=== PATIENT | female | born 1965 | race Caucasian/White ===

== ENCOUNTER → 2016-06-20 | Outpatient (CLI) | payer BC ==
--- NOTE | 2016-06-21 09:04 | XR ---
EXAMINATION TYPE: XR hand complete LT 3 views DATE OF EXAM: 06/21/2016 6:30 AM COMPARISON: NONE HISTORY: Pain second digit FINDINGS: The osseous structures are intact. The joint spaces are preserved and there is no acute fracture or dislocation. There is a small spur at the base of the second metacarpal. Arthropathy first carpometa carpal joint. IMPRESSION: 1. Arthropathy first carpal metacarpal joint. A spur seen at the base of the second metacarpal. Corre late for osteoarthritis. 2. No acute fracture.
== END | disposition home or self-care (01) ==
LOC: RADXRYALE 16:16
PROVIDERS: ATTEND Physician Assistant Medical
DX: M12.842 Other specific arthropathies, not elsewhere classified, left hand (principal); M77.8 Other enthesopathies, not elsewhere classified

== ENCOUNTER → 2016-07-06 | Outpatient (CLI) | payer BC ==
--- NOTE | 2016-07-06 08:02 | US ---
EXAMINATION TYPE: US abdomen complete DATE OF EXAM: 07/06/2016 7:26 AM COMPARISON: 2012 CT in pacs CLINICAL HISTORY: R10.11 RUQ Pain. Intermittent RUQ pain and N/V x 4 weeks EXAM MEASUREMENTS: Liver Length: 15.6 cm Gallbladder Wall: 0.2 cm CBD: 0.8 cm Spleen: 11.7 cm Right Kidney: 10.3 x 4.3 x 4.4 cm Left Kidney: 10.4 x 4.7 x 4.2 cm TECHNOLOGIST IMPRESSION: Pancreas: visualized portions wnl, limited by overlying bowel gas Liver: wnl Gallbladder: wnl The gallbladder wall measures 2 mm. Evidence for sonographic Lundberg's sign: no CBD: dilated at 0.8cm Spleen: visualized portions wnl, limited by rib shadowing, splenule seen on 2012 CT not seen on toda y's exam Right Kidney: wnl Left Kidney: 1.1cm hypoechoic area superior pole Upper IVC: wnl Abd Aorta: wnl The lesion in the left kidney does not meet the requirements of simple cyst. IMPRESSION: LESION IN THE UPPER POLE LEFT KIDNEY DOES NOT MEET THE REQUIREMENTS OF A SIMPLE CYST. FURTHER IMAGING WITH CT OR MR WOULD BE SUGGESTED.
== END | disposition home or self-care (01) ==
LOC: RADUSWWP 06:49
PROVIDERS: ATTEND Family Medicine
DX: N28.9 Disorder of kidney and ureter, unspecified (principal)
CPT/HCPCS: 76700

== ENCOUNTER → 2016-07-26 | Outpatient (CLI) | payer BC ==
--- NOTE | 2016-07-26 13:02 | CT ---
EXAMINATION TYPE: CT abdomen pelvis w con DATE OF EXAM: 07/26/2016 11:35 AM COMPARISON: 12/20/2011 INDICATION: RUQ pain; Intractable Vomiting DLP: 664.50 mGycm, Automated exposure control for dose reduction was used. CONTRAST: 100 ml mL of Omnipaque 300. Study performed with Oral Contrast TECHNIQUE: Axial images were obtained from above the diaphragm to the pubic rami in the axial plane a t 5 mm thick sections. Reconstructed images are reviewed on the computer in the coronal plane. FINDINGS: Limited CT sections are obtained the lung bases. The lung bases are clear. CT ABDOMEN: Liver: Normal Spleen: Normal Pancreas: Normal Adrenal glands: The adrenal glands are normal. Gallbladder: Normal Kidneys: No masses are evident. No hydronephrosis is present. There is a 1.3 cm cyst on the superio r anterior left kidney measuring 25 Hounsfield units. Delayed images were obtained through the kidne ys, which remain unremarkable. Aorta: Vascular calcification is within the aorta. Inferior vena cava: Normal. CT PELVIS: Loops of bowel within the abdomen and pelvis are normal. There are loops of bowel which are incom pletely distended or lack oral contrast limiting their evaluation. Appendix: Not visualized. Some right lower quadrant lymph nodes are present. Correlate for mesenteric adenitis. Urinary bladder: Normal. Genitourinary structures: Uterus is not identified. Small left ovary may remain present. Right adnexa l region is unremarkable. Osseous structures: No suspicious lytic or sclerotic lesions. IMPRESSIONS: 1. Left ovarian residual. 2. No acute abdomen or pelvis abnormality. 3. No changes suspicious for bowel obstruction. 4. Mesenteric adenitis could be considered within the differential.
== END ==
LOC: RADCTMAIN 09:19
PROVIDERS: ATTEND Family Medicine
DX: R10.11 Right upper quadrant pain (principal); R11.2 Nausea with vomiting, unspecified
CPT/HCPCS: 74177; Q9967

== ENCOUNTER → 2018-03-16 | Outpatient (CLI) | payer BC ==
--- NOTE | 2018-03-19 12:11 | MM ---
Reason for exam: screening (asymptomatic). Last mammogram was performed 2 years and 1 month ago. History: Patient is postmenopausal. Family history of breast cancer in mother at age 60. Benign left mammotome panel of the left breast, September 19, 2008. Physical Findings: A clinical breast exam by your physician is recommended on an annual basis and results should be correlated with mammographic findings. MG Screening Mammo w CAD Bilateral CC and MLO view(s) were taken. Prior study comparison: February 22, 2016, bilateral MG screening mammo w CAD. January 04, 2012, CAD bilateral diagnostic mammogram. The breast tissue is heterogeneously dense. This may lower the sensitivity of mammography. Benign calcifications in the right breast. Previous mammotome biopsy in the left breast. No significant changes when compared with prior studies. ASSESSMENT: Benign, BI-RAD 2 RECOMMENDATION: Routine screening mammogram of both breasts in 1 year.
== END | disposition home or self-care (01) ==
LOC: RADMAMWWP 12:38
PROVIDERS: ATTEND Obstetrics & Gynecology Obstetrics
DX: Z12.31 Encounter for screening mammogram for malignant neoplasm of breast (principal)
CPT/HCPCS: 77067

== ENCOUNTER 2018-05-09 10:49 | Day surgery (SDC) | payer BC ==
[2018-05-03 15:17] VITALS: BMI 28.1
[~2018-05-09 10:49] MED LIST: DEXAMETHASONE SOD PHOSPHATE 10 MG/ML 1 ML VIAL IV ONE; HYDROmorphone 0.5 MG/0.5 ML SYRINGE IVP PRN; LACTATED RINGERS 1,000 ML IV SCH; MIDAZOLAM 2 MG/2 ML VIAL IV PRN; ONDANSETRON 4 MG/2 ML VIAL IVP ONE; Pre Op ABX Message 1 EACH MISC MISCELLANE ONE; SCOPOLAMINE 1.5MG/72HR PATCH TRANSDERM ONE
[2018-05-09 11:14] VITALS: RESP 16; TEMP 97.7
[2018-05-09 11:26] LABS: Glucose,Whole Blood 82 mg/dL (75-99)
[2018-05-09] MEDS ORDERED: ceFAZolin IN SWFI 2 GM/20 ML SYRINGE IVP ONE (12:15)
[2018-05-09] MEDS ORDERED: PROPOFOL 10 MG/ML 20 ML VIAL IV ONE (12:48)
[2018-05-09] MEDS ORDERED: ceFAZolin 1,000 MG VIAL ONE (12:48)
[2018-05-09] MEDS ORDERED: MIDAZOLAM 2 MG/2 ML VIAL ONE (12:48)
[2018-05-09] MEDS ORDERED: fentaNYL (PF) 50 MCG/ML 2 ML AMP ONE (12:48)
[2018-05-09] MEDS ORDERED: LIDOCAINE 1% INJ 10MG/ML (20 ML MDV) SQ ONE (13:10)
--- NOTE | 2018-05-09 14:09 | P.OP ---
Date of Procedure: 05/09/18 Preoperative Diagnosis: 1. Plantar fasciitis left foot 2. 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 Endoscopic plantar fasciotomy left foot 2. Partial phalangectomy hallux and second digit right foot Anesthesia: MAC (Supplemented with 20 mL of 1% Xylocaine plain) Indications for Procedure: 1. Plantar fasciitis left foot line 2. Hypertrophied bone causing soft corns hallux and second digit right foot Description of Procedure: On the date of surgery the patient was taken to the operating room in good condition placed on the operating table in a supine position where an IV was started and adequate IV anesthetic agents were utilized. Anesthesia was then further supplemented with approximately 17 mL of 1% Xylocaine plain given in an infiltrative block to the patient's left heel and the hallux and second digit of her right foot The patient's feet and ankles were then prepped and draped in the usual aseptic manner and over heavy web roll padding an ankle tourniquet was placed above the malleoli of each ankle. Lysing an Esmarch bandage the patient's right foot and ankle were then elevated and exsanguinated of blood and after approximately 1 minutes. A time the ankle tourniquet was inflated to approximately 250 mmHg. At this point in time attention was directed to the dorsal lateral side of the interphalangeal joint of the patient's right hallux where an approximately 1 cm linear incision was made the incision was then deepened via sharp dissection down through the level of the subcutaneous tissue layers all neurovascular structures encountered were identified isolated and were retracted and any bleeding vessels were clamped electrocauterized dissection was then carried deep down to level PERIOSTEAL STRUCTURES OVERLYING THE DORSAL LATERAL SIDE OF THE INTERPHALANGEAL JOINT THESE WERE INCISED IN LINE WITH THE ORIGINAL SKIN INCISION AND UNDERSCORED AND RETRACTED FROM THE UNDERLYING BONE. ARTERY BUR WAS ENTERED REDUCE AND THE LATERAL SIDE OF THE INTERPHALANGEAL JOINT WAS CRATERIZED. ThroughOUT THE SURGICAL PROCEDURE COPIOUS AMOUNTS STERILE SALINE SOLUTION WAS USED TO IRRIGATE THE SURGICAL SITE. Skin edges were then coaptated and maintained utilizing or 0 nylon simple interrupted suture At this point in time attention was directed to the dorsal medial side of the middle phalanx of the second toe of the right foot where the exact same procedures described above for the lateral side of the hallux was performed on the medial side of the middle phalanx of the second toe right foot. Patient of the surgeries Adaptic Kerlix fluffs four-inch conformer and Coban was used to form a compression dressing and the ankle tourniquet to the patient's right ankle was deflated adequate hemostatic return was seen in all digits of the patient's right foot. At this point in time attention was directed the patient's left foot where utilizing an Esmarch bandage the patient's varus elevated and exsanguinated of blood and after approximately 1 minutes. A time the ankle tourniquet to the patient's left ankle was inflated to approximately 250 mmHg's point in time attention was directed the plantar medial side of the patient's left heel where an approximately 1 cm linear incision was made in line with the medial band of the plantar fascia this was deepened down through the level of the subcutaneous tissue layers all neurovascular structures encountered were identified isolated and were retracted and any bleeding vessels were clamped electrocauterized utilizing a fascial elevator the medial band of the plantar fascia was identified and the fascial elevator was passed along the inferior surface creating a channel for the obturator and the cannula complex. Inserted and a lateral exit portal incision was made the endoscope was introduced and the medial side and L blade from the lateral side and the medial band of plantar fascia was severed upon completion of this fascial probe was used to ensure that all fibers had been severed and when this was seen to be true the surgical site was flushed with copious amounts sterile saline solution a new was then removed and the skin edges were coaptated and maintained utilizing 4-0 nylon simple interrupted suture at the Kerlix fluffs four-inch conformer and 4 inch Coban was used to form a compression dressing and the ankle tourniquet patient' s left ankle was deflated adequate hemostatic return was seen in all digits of the patient's left foot. The patient tolerated the surgery and anesthesia well was taken recovery room in good postoperative condition.
[2018-05-09 14:35] VITALS: BP 113/76; PULSE 72
== END 2018-05-09 15:29 | disposition home or self-care (01) ==
LOC: OR 10:49
PROVIDERS: ATTEND Podiatrist Foot & Ankle Surgery
DX: M72.2 Plantar fascial fibromatosis (principal); M19.071 Primary osteoarthritis, right ankle and foot; M89.371 Hypertrophy of bone, right ankle and foot; L84 Corns and callosities; Z87.891 Personal history of nicotine dependence; M19.90 Unspecified osteoarthritis, unspecified site; K21.9 Gastro-esophageal reflux disease without esophagitis; Z79.1 Long term (current) use of non-steroidal anti-inflammatories (NSAID); Z79.899 Other long term (current) drug therapy
CPT/HCPCS: 28060; 28160 ×2; J2250; J1100; J0690; J2405; J2001; J3010; J2704

== ENCOUNTER 2018-05-13 01:22 | Emergency (ER) | payer BC ==
[2018-05-13 01:35] VITALS: BP 127/84; RESP 18; TEMP 97.6
[2018-05-13] MEDS ORDERED: IPRATROPIUM-ALBUTEROL 3 ML NEB INHALATION STA (01:52)
[2018-05-13] MEDS ORDERED: SODIUM CHLORIDE 0.9% 500 ML 500 ML IV STA (01:52)
[2018-05-13 02:03] VITALS: PULSE 92
--- NOTE | 2018-05-13 02:46 | ED ---
URI HPI - General Source: patient, RN notes reviewed Mode of arrival: ambulatory Limitations: no limitations <Servando Osuna - Last Filed: 05/13/18 04:14> <Candice Kauffman - Last Filed: 05/17/18 00:03> - General Chief Complaint: Upper Respiratory Infection Stated Complaint: JO Time Seen by Provider: 05/13/18 01:40 - History of Present Illness Initial Comments: This is a 52-year-old female presents emergency Department chief complaint of shortness of breath. Patient states that she feels like she is sick. She's noticed some shortness breath over the last couple hours. Patient states she has no history of COPD or asthma. She states that she was a former smoker. Denies any cardiac history denies any chest pain no fever or chills. She does feel like she has a cough that is productive. Denies any nausea vomiting diarrhea constipation no abdominal pain. (Servando Osuna) - Related Data Home Medications Medication Instructions Recorded Confirmed Bentyl(Dose Unknown) 0.5 tab PO Q4HR 05/03/18 05/09/18 Black Cohosh(Dose Unknown) 1 tab PO DAILY 05/03/18 05/03/18 Esomeprazole Magnesium [NexIUM] 40 mg PO DAILY 05/03/18 05/09/18 Etodolac(Dose Unknown) 0.25 tab PO Q4HR 05/03/18 05/03/18 Loratadine [Claritin] 10 mg PO DAILY 05/03/18 05/03/18 Vitamin C/Biotin [Hair, Skin and 1 tab PO DAILY 05/03/18 05/03/18 Nails] Vitamin D(Dose Unknown) 1 tab PO DAILY 05/03/18 05/03/18 Previous Rx's Medication Instructions Recorded Albuterol Sulfate [Proair Hfa] 1 - 2 puff INHALATION Q4HR PRN #1 05/13/18 inhaler Azithromycin [Zithromax Z-pack] 0 mg PO DIRECTED #1 pack 05/13/18 predniSONE 50 mg PO DAILY #4 tab 05/13/18 Allergies Allergy/AdvReac Type Severity Reaction Status Date / Time No Known Allergies Allergy Verified 05/13/18 01:35 Review of Systems ROS Other: All systems not noted in ROS Statement are negative. <Servando Osuna - Last Filed: 05/13/18 04:14> ROS Other: All systems not noted in ROS Statement are negative. <Candice Kauffman P - Last Filed: 05/17/18 00:03> ROS Statement: Those systems with pertinent positive or pertinent negative responses have been documented in the HPI. Past Medical History Past Medical History: GERD/Reflux, Hyperlipidemia, Osteoarthritis (OA) Additional Past Medical History / Comment(s): varicose veins, IBS, hypoglycemia, History of Any Multi-Drug Resistant Organisms: None Reported Past Surgical History: Hysterectomy, Orthopedic Surgery, Tonsillectomy Additional Past Surgical History / Comment(s): deviated septum, shyla bunionectomy ,shyla carpal tunnel, bilateral foot surgery Past Anesthesia/Blood Transfusion Reactions: No Reported Reaction Past Psychological History: No Psychological Hx Reported Smoking Status: Former smoker Past Alcohol Use History: Occasional Past Drug Use History: None Reported - Past Family History Mother Family Medical History: Cancer Additional Family Medical History / Comment(s): breast Father Family Medical History: Deep Vein Thrombosis (DVT) <Servando Osuna M - Last Filed: 05/13/18 04:14> General Exam Limitations: no limitations General appearance: alert, in no apparent distress Head exam: Present: atraumatic, normocephalic, normal inspection Eye exam: Present: normal appearance, PERRL, EOMI. Absent: scleral icterus, conjunctival injection, periorbital swelling ENT exam: Present: normal exam, normal oropharynx, mucous membranes moist, TM's normal bilaterally, normal external ear exam Neck exam: Present: normal inspection, full ROM. Absent: tenderness, meningismus, lymphadenopathy Respiratory exam: Present: normal lung sounds bilaterally. Absent: respiratory distress, wheezes, rales, rhonchi, stridor Cardiovascular Exam: Present: regular rate, normal rhythm, normal heart sounds. Absent: systolic murmur, diastolic murmur, rubs, gallop, clicks Back exam: Absent: CVA tenderness (R), CVA tenderness (L) Neurological exam: Present: alert, oriented X3, CN II-XII intact Skin exam: Present: warm, dry, intact, normal color. Absent: rash <Servando Osuna M - Last Filed: 05/13/18 04:14> Vital Signs 05/13/18 05/13/18 05/13/18 01:31 02:02 02:08 Temperature 97.6 F Pulse Rate 91 92 92 Respiratory 18 Rate Blood Pressure 127/84 O2 Sat by Pulse 96 Oximetry Medical Decision Making - Lab Data Result diagrams: 05/13/18 02:46 05/13/18 02:46 <Servando Osuna - Last Filed: 05/13/18 04:14> - Lab Data Result diagrams: 05/13/18 02:46 05/13/18 02:46 <Candice Kauffman - Last Filed: 05/17/18 00:03> - Medical Decision Making 52-year-old female presented emergency department for shortness of breath. Patient states she's had recent URI symptoms. Chest x-ray, lab work and EKG were obtained no acute abnormality. She is negative d-dimer which was a concern as she's had recent foot surgery. Patient felt better after DuoNeb treatment. She'll be discharged with azithromycin, steroids and pro-air inhaler. She'll follow-up with PCP tomorrow. Patient has acute bronchitis. ( Servando Osuna) I was available for consultation in the emergency department. The history and physical exam were done by the midlevel provider. I was consulted for this patient's care. I reviewed the case with the midlevel provider and based on their presentation of the patient, I agree with the assessment, medical decision making and plan of care as documented. (Candice Kauffman) - Lab Data Lab Results 05/13/18 05/13/18 05/13/18 Range/Units 02:46 02:46 02:46 WBC 8.0 (3.8-10.6) k/uL RBC 4.73 (3.80-5.40) m/uL Hgb 14.1 (11.4-16.0) gm/dL Hct 41.6 (34.0-46.0) % MCV 88.0 (80.0-100.0) fL MCH 29.8 (25.0-35.0) pg MCHC 33.9 (31.0-37.0) g/dL RDW 13.0 (11.5-15.5) % Plt Count 202 (150-450) k/uL Neutrophils % 70 % Lymphocytes % 22 % Monocytes % 5 % Eosinophils % 2 % Basophils % 0 % Neutrophils # 5.6 (1.3-7.7) k/uL Lymphocytes # 1.7 (1.0-4.8) k/uL Monocytes # 0.4 (0-1.0) k/uL Eosinophils # 0.2 (0-0.7) k/uL Basophils # 0.0 (0-0.2) k/uL PT (9.0-12.0) sec INR (<1.2) APTT (22.0-30.0) sec D-Dimer (<0.60) mg/L FEU Sodium 139 (137-145) mmol/L Potassium 4.4 (3.5-5.1) mmol/L Chloride 105 (98-107) mmol/L Carbon Dioxide 23 (22-30) mmol/L Anion Gap 11 mmol/L BUN 18 H (7-17) mg/dL Creatinine 0.81 (0.52-1.04) mg/dL Est GFR (CKD-EPI)AfAm >90 (>60 ml/min/1.73 sqM) Est GFR (CKD-EPI)NonAf 83 (>60 ml/min/1.73 sqM) Glucose 109 H (74-99) mg/dL Calcium 9.5 (8.4-10.2) mg/dL Magnesium 2.1 (1.6-2.3) mg/dL Total Bilirubin 0.4 (0.2-1.3) mg/dL AST 33 (14-36) U/L ALT 33 (9-52) U/L Alkaline Phosphatase 70 (38-126) U/L Troponin I <0.012 (0.000-0.034) ng/mL Total Protein 7.5 (6.3-8.2) g/dL Albumin 4.3 (3.5-5.0) g/dL 05/13/18 Range/Units 03:00 WBC (3.8-10.6) k/uL RBC (3.80-5.40) m/uL Hgb (11.4-16.0) gm/dL Hct (34.0-46.0) % MCV (80.0-100.0) fL MCH (25.0-35.0) pg MCHC (31.0-37.0) g/dL RDW (11.5-15.5) % Plt Count (150-450) k/uL Neutrophils % % Lymphocytes % % Monocytes % % Eosinophils % % Basophils % % Neutrophils # (1.3-7.7) k/uL Lymphocytes # (1.0-4.8) k/uL Monocytes # (0-1.0) k/uL Eosinophils # (0-0.7) k/uL Basophils # (0-0.2) k/uL PT 10.5 (9.0-12.0) sec INR 1.0 (<1.2) APTT 23.6 (22.0-30.0) sec D-Dimer 0.19 (<0.60) mg/L FEU Sodium (137-145) mmol/L Potassium (3.5-5.1) mmol/L Chloride (98-107) mmol/L Carbon Dioxide (22-30) mmol/L Anion Gap mmol/L BUN (7-17) mg/dL Creatinine (0.52-1.04) mg/dL Est GFR (CKD-EPI)AfAm (>60 ml/min/1.73 sqM) Est GFR (CKD-EPI)NonAf (>60 ml/min/1.73 sqM) Glucose (74-99) mg/dL Calcium (8.4-10.2) mg/dL Magnesium (1.6-2.3) mg/dL Total Bilirubin (0.2-1.3) mg/dL AST (14-36) U/L ALT (9-52) U/L Alkaline Phosphatase (38-126) U/L Troponin I (0.000-0.034) ng/mL Total Protein (6.3-8.2) g/dL Albumin (3.5-5.0) g/dL 05/13/18 03:53 EKG performed at 2:26 no sinus rhythm with rate of 77 IN 150 QRS 86 QT/QTC 376/ 425 (Servando Osuna) Disposition Is patient prescribed a controlled substance at d/c from ED?: No Time of Disposition: 04:15 <Servando Osuna - Last Filed: 05/13/18 04:14> <Candice Kauffman - Last Filed: 05/17/18 00:03> Clinical Impression: Acute bronchitis Disposition: HOME SELF-CARE Condition: Stable Instructions: Upper Respiratory Infection (ED) Additional Instructions: Please return to the Emergency Department if symptoms worsen or any other concerns. Prescriptions: Albuterol Sulfate [Proair Hfa] 1 - 2 puff INHALATION Q4HR PRN #1 inhaler PRN Reason: difficulty in breathing Azithromycin [Zithromax Z-pack] 0 mg PO DIRECTED #1 pack predniSONE 50 mg PO DAILY #4 tab Referrals: Servando Hayes DO [Primary Care Provider] - 1-2 days
[2018-05-13 02:59] LABS: Basophils % (A) 0 %; Eosinophils # (A) 0.2 k/uL (0-0.7); Eosinophils % (A) 2 %; HCT 41.6 % (34.0-46.0); HGB 14.1 gm/dL (11.4-16.0); Lymphocytes # (A) 1.7 k/uL (1.0-4.8); Lymphocytes % (A) 22 %; MCH 29.8 pg (25.0-35.0); MCHC 33.9 g/dL (31.0-37.0); Monocytes # (A) 0.4 k/uL (0-1.0); Monocytes % (A) 5 %; Neutrophils # (A) 5.6 k/uL (1.3-7.7); Neutrophils % (A) 70 %; Platelet Count 202 k/uL (150-450); RBC 4.73 m/uL (3.80-5.40)
--- NOTE | 2018-05-13 03:03 | XR ---
EXAMINATION TYPE: XR chest 2V DATE OF EXAM: 05/13/2018 COMPARISON: 09/01/2010 HISTORY: Difficulty breathing TECHNIQUE: Frontal and lateral views of the chest are obtained. FINDINGS: Heart and mediastinum are normal. Lungs are clear. Diaphragm is normal. There are chest le ads. IMPRESSION: Normal chest. No change.
[2018-05-13 03:09] LABS: ALT 33 U/L (9-52); AST 33 U/L (14-36); Albumin 4.3 g/dL (3.5-5.0); Alkaline Phosphatase 70 U/L (38-126); Anion Gap 11 mmol/L; Blood Urea Nitrogen 18 mg/dL (7-17); Calcium 9.5 mg/dL (8.4-10.2); Carbon Dioxide 23 mmol/L (22-30); Chloride 105 mmol/L (98-107); Glucose 109 mg/dL (74-99); Magnesium 2.1 mg/dL (1.6-2.3); Potassium 4.4 mmol/L (3.5-5.1); Sodium 139 mmol/L (137-145); Total Bilirubin 0.4 mg/dL (0.2-1.3); Total Protein 7.5 g/dL (6.3-8.2)
[2018-05-13 04:09] LABS: D-Dimer 0.19 mg/L FEU (<0.60); Partial Thromboplastin Time 23.6 sec (22.0-30.0); Prothrombin Time 10.5 sec (9.0-12.0)
[2018-05-13] MEDS ORDERED: methylPREDNISolone SOD SUCCI 125 MG/2 ML VIAL IV STA (04:16)
== END 2018-05-13 04:46 | disposition home or self-care (01) ==
LOC: EC 01:22
DX: J20.9 Acute bronchitis, unspecified (principal); K21.9 Gastro-esophageal reflux disease without esophagitis; M19.90 Unspecified osteoarthritis, unspecified site; Z87.891 Personal history of nicotine dependence; Z79.1 Long term (current) use of non-steroidal anti-inflammatories (NSAID); Z79.899 Other long term (current) drug therapy; Z53.20 Procedure and treatment not carried out because of patient's decision for unspecified reasons
CPT/HCPCS: 36415; 71046; 80053; 83735; 84484; 85025; 85379; 85610; 85730; 93005; 94640; 96360; 96361; 99285

== ENCOUNTER 2020-07-20 09:03 | Day surgery (SDC) | payer BC ==
[2020-07-15 16:35] VITALS: BMI 28.1
[~2020-07-20 09:03] MED LIST changes: -DEXAMETHASONE SOD PHOSPHATE 10 MG/ML 1 ML VIAL IV ONE; -HYDROmorphone 0.5 MG/0.5 ML SYRINGE IVP PRN; +LIDOCAINE 1% (10MG/ML) FOR IV START INTRADERMA PRN; -MIDAZOLAM 2 MG/2 ML VIAL IV PRN; -ONDANSETRON 4 MG/2 ML VIAL IVP ONE; -Pre Op ABX Message 1 EACH MISC MISCELLANE ONE; -SCOPOLAMINE 1.5MG/72HR PATCH TRANSDERM ONE
[2020-07-20 09:29] VITALS: RESP 18; TEMP 98.2
[2020-07-20 09:36] LABS: Glucose,Whole Blood 88 mg/dL (75-99)
[2020-07-20] MEDS ORDERED: LIDOCAINE 1% INJ 10MG/ML (20 ML MDV) ONE (10:37)
[2020-07-20] MEDS ORDERED: MIDAZOLAM 2 MG/2 ML VIAL ONE (10:37)
[2020-07-20] MEDS ORDERED: PROPOFOL 10 MG/ML 20 ML VIAL IV ONE (10:37)
[2020-07-20] MEDS ORDERED: fentaNYL (PF) 50 MCG/ML 2 ML AMP ONE (10:37)
--- NOTE | 2020-07-20 11:12 | P.PCN ---
Date of Procedure: 07/20/20 Description of Procedure: Brief history: 54-year-old female presents for outpatient EGD and colonoscopy for evaluation of GERD, IBS, altered bowel function. She reports symptoms of reflux, bloating, diarrhea. Last colonoscopy 2013 within normal limits. Procedure performed: Esophagogastroduodenoscopy with biopsy Colonoscopy with biopsy Estimated blood loss: Minimal. Preoperative diagnosis: GERD, IBS, altered bowel function, less colonoscopy in 2013 Anesthesia: MAC Procedure: After informed consent was obtained from the patient was brought into the endoscopy unit and IV sedation was administered by anesthesia under continuous monitoring. Initially upper endoscopy was done. The Olympus GF 190 video endoscope was inserted into the mouth and esophagus intubated without any difficulty and was gradually advanced into the stomach and duodenum and carefully examined. The bulb and second part of the duodenum appeared normal, With biopsies taken. The scope was then withdrawn into the stomach adequately insufflated with air and upon careful examination the antrum and body, cardia and fundus appeared normal, Except for scattered punctate erythema in the antrum and body suggestive of mild gastritis with biopsies. The scope was then withdrawn into the esophagus. The GE junction was located at 37 cm to the incisors and biopsies. It appeared regular with no erythema erosions or ulcerations. Rest of the esophagus appeared normal. Patient tolerated the procedure well. At this time the patient continued to remain sedation. Initial digital rectal examination was normal. Olympus CF 190 video colonoscope was then inserted into the rectum and gradually advanced to the cecum without any difficulty. Careful examination was performed as the scope was gradually being withdrawn. The prep was excellent. The cecum, ascending colon, transverse colon, descending colon, sigmoid colon and rectum appeared normal except for 1 tiny superficial ulcer in the ileum with biopsies taken of the ileum, right colon and left colon . Retroflexion was performed in the rectum and no lesions were noted, Low-grade internal hemorrhoids. Patient tolerated the procedure well. Impression: 1. Mild gastritis. Biopsies of the duodenum, antrum and body and GE junction. 2. Normal-appearing colon from rectum to cecum with normal-appearing terminal ileum except for one superficial small ulceration in the terminal ileum likely medication related. Biopsies taken of the right colon, left colon and terminal ileum given altered bowel function. Recommendations: Findings of this examination were discussed with the patient as well as Her family. Okay to resume diet. Okay to resume medications. Await pathology from biopsies. Follow up in the GI clinic as scheduled for results of biopsies. Recommend repeat colonoscopy in 10 years for screening or sooner if signs or symptoms which warrant further evaluation develop.
[2020-07-20 11:21] LABS: Glucose,Whole Blood 78 mg/dL (75-99)
[2020-07-20 11:31] VITALS: BP 116/75; PULSE 66
== END 2020-07-20 11:46 | disposition home or self-care (01) ==
LOC: ORWHC2ENDO 09:03
PROVIDERS: ATTEND Internal Medicine
DX: K21.00 Gastro-esophageal reflux disease with esophagitis, without bleeding (principal); K29.50 Unspecified chronic gastritis without bleeding; K58.9 Irritable bowel syndrome, unspecified; R19.7 Diarrhea, unspecified
CPT/HCPCS: 88305; 45380; 43239; J2250; J2001; J3010; J2704

== ENCOUNTER 2020-08-02 12:52 | Inpatient (IN) | payer BC ==
[2020-08-02] MEDS ORDERED: ACETAMINOPHEN TAB 500 MG TAB PO STA (13:33)
--- NOTE | 2020-08-02 13:38 | ED ---
SOB HPI - General Chief Complaint: Shortness of Breath Stated Complaint: COVID+/cough Time Seen by Provider: 08/02/20 13:24 Source: patient Mode of arrival: ambulatory Limitations: no limitations - History of Present Illness Initial Comments: This 54-year-old female history of IBS who presents emergency department for worsening cough and shortness of breath. The patient states that she was diagnosed with covid on July 22. She states that since that time her symptoms have progressively worsened. She's been having generalized body aches, fevers, chills, cough, shortness of breath. She states that today she was having quite a bit of worsening cough which concerned her that she was developing pneumonia so she can emergency department for evaluation. Patient states that she's been taking [id number] Tylenol at home however nothing else at this time. She denies any chest pain. No nausea or vomiting. She does admit to some diarrhea. States that she's been drinking plenty of fluids. No lower Chevys swelling or pain. She denies any other complaints. - Related Data Home Medications Medication Instructions Recorded Confirmed Esomeprazole Magnesium [NexIUM] 40 mg PO HS 05/03/18 08/02/20 Sertraline [Zoloft] 25 mg PO HS 07/15/20 08/02/20 Acetaminophen Tab [Tylenol Tab] 500 mg PO Q6H PRN 08/02/20 08/02/20 Dicyclomine [Bentyl] 10 mg PO Q4H 08/02/20 08/02/20 Allergies Allergy/AdvReac Type Severity Reaction Status Date / Time No Known Allergies Allergy Verified 08/02/20 14:06 Review of Systems ROS Statement: Those systems with pertinent positive or pertinent negative responses have been documented in the HPI. ROS Other: All systems not noted in ROS Statement are negative. Past Medical History Past Medical History: GERD/Reflux, Hyperlipidemia, Osteoarthritis (OA) Additional Past Medical History / Comment(s): varicose veins, IBS, hypoglycemia, nauseated after eating, abd. pain History of Any Multi-Drug Resistant Organisms: None Reported Past Surgical History: Hysterectomy, Orthopedic Surgery, Tonsillectomy Additional Past Surgical History / Comment(s): deviated septum, shyla bunionectomy,shyla carpal tunnel, bilateral foot surgery, left rotator cuff repair Past Anesthesia/Blood Transfusion Reactions: No Reported Reaction Past Psychological History: No Psychological Hx Reported Smoking Status: Former smoker Past Alcohol Use History: None Reported Past Drug Use History: None Reported - Past Family History Mother Family Medical History: Cancer Additional Family Medical History / Comment(s): breast Father Family Medical History: Deep Vein Thrombosis (DVT) General Exam - General Exam Comments Initial Comments: Constitutional: Awake alert Appears comfortable Head: Normocephalic atraumatic Eyes: no conjunctival injection No scleral icterus EOMI Neck: No JVD Supple Heart: Tachycardia with regular rhythm normal S1-S2 no murmurs Lungs: Clear to auscultation bilaterally No wheezing No rales Abdomen: Soft nondistended nontender Extremities: Non edematous DP pulses intact Radial pulses intact Neuro: A&Ox3 No focal neurologic deficits Psych: Appropriate mood and affect Limitations: no limitations Course Vital Signs 08/02/20 08/02/20 12:57 15:04 Temperature 100.6 F H 98.6 F Pulse Rate 104 H 90 Respiratory 22 16 Rate Blood Pressure 118/70 123/70 O2 Sat by Pulse 96 95 Oximetry - Reevaluation(s) Reevaluation #1: EKG showing normal sinus rhythm with a rate of 94. There is no abnormal ST se gment changes or T-wave inversions. QTC is 435. Other intervals normal. No ectopy. 08/02/20 13:38 Medical Decision Making - Medical Decision Making This 54-year-old female who presents emergency department for worsening cough and shortness of breath. The patient was ambulated and had a desaturation down to 91%. She had some tachycardias well up in the 1 teens. Chest x-ray reveals bilateral infiltrates consistent with her [place] diagnosis. Due to her red worsening respiratory status were going to keep her in the hospital for monitoring and steroid administration. The patient is agreeable to this. Dr. Pacheco accepted the admission. - Lab Data Result diagrams: 08/02/20 14:00 08/02/20 14:00 Lab Results 08/02/20 08/02/20 08/02/20 Range/Units 14:00 14:00 14:00 WBC 7.1 (3.8-10.6) k/uL RBC 4.10 (3.80-5.40) m/uL Hgb 12.0 (11.4-16.0) gm/dL Hct 35.0 (34.0-46.0) % MCV 85.4 (80.0-100.0) fL MCH 29.2 (25.0-35.0) pg MCHC 34.2 (31.0-37.0) g/dL RDW 13.1 (11.5-15.5) % Plt Count 269 (150-450) k/uL MPV 7.2 Neutrophils % 81 % Lymphocytes % 11 % Monocytes % 4 % Eosinophils % 1 % Basophils % 1 % Neutrophils # 5.8 (1.3-7.7) k/uL Lymphocytes # 0.8 L (1.0-4.8) k/uL Monocytes # 0.3 (0-1.0) k/uL Eosinophils # 0.1 (0-0.7) k/uL Basophils # 0.0 (0-0.2) k/uL PT 10.2 (9.0-12.0) sec INR 0.9 (<1.2) APTT 23.0 (22.0-30.0) sec D-Dimer 0.44 (<0.60) mg/L FEU Sodium 134 L (137-145) mmol/L Potassium 3.5 (3.5-5.1) mmol/L Chloride 102 (98-107) mmol/L Carbon Dioxide 23 (22-30) mmol/L Anion Gap 9 mmol/L BUN 12 (7-17) mg/dL Creatinine 0.63 (0.52-1.04) mg/dL Est GFR (CKD-EPI)AfAm >90 (>60 ml/min/1.73 sqM) Est GFR (CKD-EPI)NonAf >90 (>60 ml/min/1.73 sqM) Glucose 115 H (74-99) mg/dL Plasma Lactic Acid Vince (0.7-2.0) mmol/L Calcium 9.1 (8.4-10.2) mg/dL Magnesium 2.0 (1.6-2.3) mg/dL Total Bilirubin 0.6 (0.2-1.3) mg/dL AST 74 H (14-36) U/L ALT 76 H (4-34) U/L Alkaline Phosphatase 101 (38-126) U/L Lactate Dehydrogenase 1068 H (313-618) U/L C-Reactive Protein 84.7 H (<10.0) mg/L Total Protein 6.7 (6.3-8.2) g/dL Albumin 3.6 (3.5-5.0) g/dL 08/02/20 Range/Units 14:00 WBC (3.8-10.6) k/uL RBC (3.80-5.40) m/uL Hgb (11.4-16.0) gm/dL Hct (34.0-46.0) % MCV (80.0-100.0) fL MCH (25.0-35.0) pg MCHC (31.0-37.0) g/dL RDW (11.5-15.5) % Plt Count (150-450) k/uL MPV Neutrophils % % Lymphocytes % % Monocytes % % Eosinophils % % Basophils % % Neutrophils # (1.3-7.7) k/uL Lymphocytes # (1.0-4.8) k/uL Monocytes # (0-1.0) k/uL Eosinophils # (0-0.7) k/uL Basophils # (0-0.2) k/uL PT (9.0-12.0) sec INR (<1.2) APTT (22.0-30.0) sec D-Dimer (<0.60) mg/L FEU Sodium (137-145) mmol/L Potassium (3.5-5.1) mmol/L Chloride (98-107) mmol/L Carbon Dioxide (22-30) mmol/L Anion Gap mmol/L BUN (7-17) mg/dL Creatinine (0.52-1.04) mg/dL Est GFR (CKD-EPI)AfAm (>60 ml/min/1.73 sqM) Est GFR (CKD-EPI)NonAf (>60 ml/min/1.73 sqM) Glucose (74-99) mg/dL Plasma Lactic Acid Vince 1.5 (0.7-2.0) mmol/L Calcium (8.4-10.2) mg/dL Magnesium (1.6-2.3) mg/dL Total Bilirubin (0.2-1.3) mg/dL AST (14-36) U/L ALT (4-34) U/L Alkaline Phosphatase (38-126) U/L Lactate Dehydrogenase (313-618) U/L C-Reactive Protein (<10.0) mg/L Total Protein (6.3-8.2) g/dL Albumin (3.5-5.0) g/dL Disposition Clinical Impression: Pneumonia due to COVID-19 virus Disposition: ADMITTED IP TO THIS HOSP Condition: Stable Referrals: Servando Hayes DO [Primary Care Provider] - 1-2 days
--- NOTE | 2020-08-02 13:54 | XR ---
EXAMINATION TYPE: XR chest 1V portable DATE OF EXAM: 08/02/2020 COMPARISON: 05/13/2018 INDICATION: Cough congestion fever TECHNIQUE: Single frontal view of the chest is obtained. FINDINGS: The heart size is normal. The pulmonary vasculature is normal. Patchy bilateral peripheral infiltrates are present. Findings can be compatible with atypical pneumon ia in the proper clinical setting. IMPRESSION: 1. Focal correlation recommended for atypical pneumonia.
[2020-08-02] MEDS: DEXAMETHASONE SOD PHOSPHATE 10 MG/ML 1 ML VIAL IV SCH (14:04)
[2020-08-02 14:13] LABS: Basophils % (A) 1 %; Eosinophils # (A) 0.1 k/uL (0-0.7); Eosinophils % (A) 1 %; Lymphocytes # (A) 0.8 k/uL (1.0-4.8); Lymphocytes % (A) 11 %; MCH 29.2 pg (25.0-35.0); MCHC 34.2 g/dL (31.0-37.0); MCV 85.4 fL (80.0-100.0); Mean Platelet Volume 7.2; Monocytes # (A) 0.3 k/uL (0-1.0); Monocytes % (A) 4 %; Neutrophils # (A) 5.8 k/uL (1.3-7.7); Neutrophils % (A) 81 %; Platelet Count 269 k/uL (150-450); RDW 13.1 % (11.5-15.5); WBC 7.1 k/uL (3.8-10.6)
[2020-08-02 14:26] LABS: D-Dimer 0.44 mg/L FEU (<0.60); INR 0.9 (<1.2); Prothrombin Time 10.2 sec (9.0-12.0)
[2020-08-02 14:34] LABS: ALT 76 U/L (4-34); AST 74 U/L (14-36); African American GFR (CKD) >90 (>60 ml/min/1.73 sqM); Albumin 3.6 g/dL (3.5-5.0); Alkaline Phosphatase 101 U/L (38-126); Anion Gap 9 mmol/L; Blood Urea Nitrogen 12 mg/dL (7-17); C Reactive Protein 84.7 mg/L (<10.0); Calcium 9.1 mg/dL (8.4-10.2); Carbon Dioxide 23 mmol/L (22-30); Chloride 102 mmol/L (98-107); Glucose 115 mg/dL (74-99); LDH 1068 U/L (313-618); Non-African American GFR(CKD) >90 (>60 ml/min/1.73 sqM); Potassium 3.5 mmol/L (3.5-5.1); Sodium 134 mmol/L (137-145); Total Bilirubin 0.6 mg/dL (0.2-1.3); Total Protein 6.7 g/dL (6.3-8.2)
[2020-08-02] MEDS ORDERED: NALOXONE 0.4 MG/ML 1 ML VIAL IV PRN (15:08)
[2020-08-02] MEDS ORDERED: ACETAMINOPHEN TAB 325 MG TAB PO PRN (15:08)
--- NOTE | 2020-08-02 16:35 | P.HPIM ---
History of Present Illness 54-year-old female history of IBS who presents emergency department for worsening cough and shortness of breath. The patient states that she was diagnosed with covid on July 22. She states that since that time her symptoms have progressively worsened. She's been having generalized body aches, fevers, chills, cough, shortness of breath. She states that today she was having quite a bit of worsening cough. She denies any chest pain. No nausea or vomiting. She does admit to some diarrhea. States that she's been drinking plenty of fluids. No lower Chevys swelling or pain. She denies any other complaints. Patient clinically looks well. Although chest x-ray showed significant bilateral lower lobe infiltrates. Patient is presently not requiring oxygen significant crackles on exam with bronchophony. With concerns of worsening respiratory status and as patient is significantly getting short of breath with minimal exertion patient will be monitored today. Patient is not a candidate for Bam and remdesivir as she was diagnosed with Covid 11 days ago Review of Systems REVIEW OF SYSTEMS: CONSTITUTIONAL: As mentioned in HPI HEENT: No recent visual problems or hearing problems. Denied any sore throat. CARDIOVASCULAR: No chest pain, orthopnea, PND, no palpitations, no syncope. PULMONARY: no hemoptysis. GASTROINTESTINAL: No diarrhea, no nausea, no vomiting, no abdominal pain. NEUROLOGICAL: No headaches, no weakness, no numbness. HEMATOLOGICAL: Denies any bleeding or petechiae. GENITOURINARY: Denies any burning micturition, frequency, or urgency. MUSCULOSKELETAL/RHEUMATOLOGICAL: Denies any joint pain, swelling, or any muscle pain. ENDOCRINE: Denies any polyuria or polydipsia. The rest of the 14-point review of systems is negative. Past Medical History Past Medical History: GERD/Reflux, Hyperlipidemia, Osteoarthritis (OA) Additional Past Medical History / Comment(s): varicose veins, IBS, hypoglycemia, nauseated after eating, abd. pain History of Any Multi-Drug Resistant Organisms: None Reported Past Surgical History: Hysterectomy, Orthopedic Surgery, Tonsillectomy Additional Past Surgical History / Comment(s): deviated septum, shyla bunionectomy,shyla carpal tunnel, bilateral foot surgery, left rotator cuff repair Past Anesthesia/Blood Transfusion Reactions: No Reported Reaction Past Psychological History: No Psychological Hx Reported Smoking Status: Former smoker Past Alcohol Use History: None Reported Past Drug Use History: None Reported - Past Family History Mother Family Medical History: Cancer Additional Family Medical History / Comment(s): breast Father Family Medical History: Deep Vein Thrombosis (DVT) Medications and Allergies Home Medications Medication Instructions Recorded Confirmed Type Esomeprazole Magnesium [NexIUM] 40 mg PO HS 05/03/18 08/02/20 History Sertraline [Zoloft] 25 mg PO HS 07/15/20 08/02/20 History Acetaminophen Tab [Tylenol Tab] 500 mg PO Q6H PRN 08/02/20 08/02/20 History Dicyclomine [Bentyl] 10 mg PO Q4H 08/02/20 08/02/20 History Allergies Allergy/AdvReac Type Severity Reaction Status Date / Time No Known Allergies Allergy Verified 08/02/20 14:06 Physical Exam Vitals: Vital Signs Temp Pulse Resp BP Pulse Ox 08/02/20 15:04 98.6 F 90 16 123/70 95 08/02/20 12:57 100.6 F H 104 H 22 118/70 96 Intake and Output 08/02/20 08/02/20 08/02/20 06:59 14:59 22:59 Other: Weight 72.575 kg PHYSICAL EXAMINATION: GENERAL: The patient is alert and oriented x3, not in any acute distress. Well developed, well nourished. HEENT: Pupils are round and equally reacting to light. EOMI. No scleral icterus. No conjunctival pallor. Normocephalic, atraumatic. No pharyngeal erythema. No thyromegaly. CARDIOVASCULAR: S1 and S2 present. No murmurs, rubs, or gallops. PULMONARY: Diffuse bilateral crackles in the posterior lung blanca. No wheezing was appreciated. ABDOMEN: Soft, nontender, nondistended, normoactive bowel sounds. No palpable organomegaly. MUSCULOSKELETAL: No joint swelling or deformity. EXTREMITIES: No cyanosis, clubbing, or pedal edema. NEUROLOGICAL: Gross neurological examination did not reveal any focal deficits. SKIN: No rashes. Results CBC & Chem 7: 08/02/20 14:00 08/02/20 14:00 Labs: Abnormal Lab Results - Last 24 Hours (Table) 08/02/20 08/02/20 Range/Units 14:00 14:00 Lymphocytes # 0.8 L (1.0-4.8) k/uL Sodium 134 L (137-145) mmol/L Glucose 115 H (74-99) mg/dL AST 74 H (14-36) U/L ALT 76 H (4-34) U/L Lactate Dehydrogenase 1068 H (313-618) U/L C-Reactive Protein 84.7 H (<10.0) mg/L Assessment and Plan Plan: Covid 19 pneumonia: Patient does not have hypoxemic at this time although patient does have extensive pneumonia , patient can probably get worse because of that reason patient will be monitored overnight patient was started on sys temic steroids and vitamins for Covid. Pulmonology will be consulted. We will order a BNP clinically doesn't appear to be in CHF. Patient does have elevated liver enzymes and elevated inflammatory markers secondary to infection although d-dimer is within normal limits -Hypovolemic hyponatremia patient was started on IV fluids. -Gastroesophageal reflux disease -Hyperlipidemia - DVT prophylaxis with Lovenox
[2020-08-02] MEDS: SODIUM CHLORIDE 0.9% 1,000 ML IV SCH (17:06)
[2020-08-02] MEDS: DICYCLOMINE 20 MG TAB PO PRN ×2 (17:06→21:19)
[2020-08-02] MEDS: ZINC SULFATE 220 MG CAP PO SCH (17:06)
[2020-08-02] MEDS: ALBUTEROL HFA INHALER INHALATION SCH (20:59)
[2020-08-02] MEDS ORDERED: FAMOTIDINE 20 MG TAB PO SCH (21:00)
[2020-08-02] MEDS: ASCORBIC ACID 500 MG TAB PO SCH (21:11)
[2020-08-02] MEDS: PANTOPRAZOLE 40 MG TABLET PO SCH (21:11)
[2020-08-02] MEDS: SERTRALINE 25 MG TAB PO SCH (21:20)
[2020-08-02] MEDS: guaiFENesin-DM 600/30MG 1 EACH TAB.ER.12H PO PRN (21:56)
[2020-08-02 23:01] LABS: Ferritin 1429.6 ng/mL (10.0-291.0)
[2020-08-03] MEDS: SODIUM CHLORIDE 0.9% 1,000 ML IV SCH ×2 (04:37→16:24)
[2020-08-03] MEDS: ALBUTEROL HFA INHALER INHALATION SCH ×4 (07:52→20:30)
[2020-08-03] MEDS: DEXAMETHASONE SOD PHOSPHATE 10 MG/ML 1 ML VIAL IV SCH (08:06)
[2020-08-03] MEDS: ZINC SULFATE 220 MG CAP PO SCH (08:07)
[2020-08-03] MEDS: ENOXAPARIN 40 MG/0.4 ML SYRINGE SQ SCH (08:07)
[2020-08-03] MEDS: ASCORBIC ACID 500 MG TAB PO SCH ×2 (08:07→20:40)
[2020-08-03] MEDS: DICYCLOMINE 20 MG TAB PO PRN ×4 (08:13→20:42)
[2020-08-03 09:25] LABS: African American GFR (CKD) 112.3 (60.0-200.0); Albumin 3.4 g/dL (3.80-4.90); Albumin/Globulin Ratio 1.62 (1.60-3.17); Anion Gap 9.9 mmol/L (4.00-12.00); BUN/Creat Ratio 18.57 Ratio (12.00-20.00); Calcium 8.7 mg/dL (8.7-10.3); Carbon Dioxide 22.1 mmol/L (21.6-31.8); Globulin 2.1 g/dL (1.6-3.3); Non-African American GFR(CKD) 96.9 (60.0-200.0); Potassium 3.8 mmol/L (3.5-5.5); Total Bilirubin 0.3 mg/dL (0.2-1.2); Total Protein 5.5 g/dL (6.2-8.2)
--- NOTE | 2020-08-03 11:42 | P.CNPUL ---
History of Present Illness Consult date: 08/03/20 Reason for consult: pneumonia History of present illness: 54-year-old female patient presented to the hospital because of worsening shortness of breath and cough. The patient was diagnosed having covid 19 infection on 07/22/2020. Apparently her symptoms was progressively getting worse and the patient ended up coming into the hospital for worsening shortness of breath. She has been having generalized body aches, fever, chills, worsening dyspnea and cough. Her cough got worse on the day of admission. No nausea. No vomiting. She was having some diarrhea earlier and she's been drinking plenty of fluids at home. No abdominal pain. No altered mentation. The patient had an initial blood work showing a white cell count of 7.1 with a hemoglobin of 12. Coagulation profile was within normal. D-dimer was 0.44. Electrolytes were all within normal limits. Renal function was normal. Lactic acid level was 1.5. The patient also had an LDH of 1068. CRP was 84. ProBNP level was 224. There is some mild transaminitis with AST of 74 and ALP of 76. The chest x-ray revealed some patchy bilateral peripheral infiltrates. The patient is currently on room air oxygen with a pulse ox of 94%. The patient is afebrile. Patient was started on Lovenox for DVT prophylaxis 40 mg subcu. Patient was started also on Decadron 6 many grams IV every 24 hours in addition to vitamin C, and zinc. Cough is being suppressed with Mucinex D Review of Systems Constitutional: Reports fatigue, Reports fever, Reports lethargy, Reports weakness Eyes: denies as per HPI, denies blurred vision, denies bulging eye, denies decreased vision, denies diplopia, denies discharge, denies dry eye, denies irritation, denies itching, denies pain, denies photophobia, denies loss of peripheral vision, denies loss of vision, denies tunnel vision/blind spots Ears: deny: decreased hearing, ear discharge, earache, tinnitus Ears, nose, mouth and throat: Denies headache, Denies sore throat Breasts: absent: as per HPI, change in shape, gynecomastia, masses, nipple discharge, pain, skin changes, swelling Cardiovascular: Reports decreased exercise tolerance, Reports dyspnea on exertion Respiratory: Reports cough, Reports dyspnea Gastrointestinal: Reports as per HPI Genitourinary: Reports as per HPI Menstruation: Reports as per HPI Musculoskeletal: Reports as per HPI Musculoskeletal: absent: ankle pain, ankle stiffness, ankle swelling Integumentary: Reports as per HPI Neurological: Reports as per HPI Psychiatric: Reports as per HPI Endocrine: Reports as per HPI Hematologic/Lymphatic: Reports as per HPI Allergic/Immunologic: Reports as per HPI Past Medical History Past Medical History: GERD/Reflux, Hyperlipidemia, Osteoarthritis (OA) Additional Past Medical History / Comment(s): varicose veins, IBS, hypoglycemia, nauseated after eating, abd. pain History of Any Multi-Drug Resistant Organisms: None Reported Past Surgical History: Hysterectomy, Orthopedic Surgery, Tonsillectomy Additional Past Surgical History / Comment(s): deviated septum, shyla bunionectomy,shyla carpal tunnel, bilateral foot surgery, left rotator cuff repair Past Anesthesia/Blood Transfusion Reactions: No Reported Reaction Past Psychological History: No Psychological Hx Reported Smoking Status: Former smoker Past Alcohol Use History: None Reported Past Drug Use History: None Reported - Past Family History Mother Family Medical History: Cancer Additional Family Medical History / Comment(s): breast Father Family Medical History: Deep Vein Thrombosis (DVT) Medications and Allergies Home Medications Medication Instructions Recorded Confirmed Type Esomeprazole Magnesium [NexIUM] 40 mg PO HS 05/03/18 08/02/20 History Sertraline [Zoloft] 25 mg PO HS 07/15/20 08/02/20 History Acetaminophen Tab [Tylenol Tab] 500 mg PO Q6H PRN 08/02/20 08/02/20 History Dicyclomine [Bentyl] 10 mg PO Q4H 08/02/20 08/02/20 History Allergies Allergy/AdvReac Type Severity Reaction Status Date / Time No Known Allergies Allergy Verified 08/02/20 14:06 Physical Exam Vitals: Vital Signs Temp Pulse Pulse Resp BP BP Pulse Ox 08/03/20 09:40 98.0 F 78 18 114/65 94 L 08/03/20 05:45 98.1 F 68 106/65 97 08/03/20 02:27 98.3 F 83 111/67 95 08/02/20 21:47 98.0 F 87 103/65 94 L 08/02/20 20:00 97.7 F 87 16 109/70 97 08/02/20 17:16 99.0 F 90 18 132/84 95 08/02/20 15:04 98.6 F 90 16 123/70 95 08/02/20 14:00 16 08/02/20 12:57 100.6 F H 104 H 22 118/70 96 Intake and Output 08/02/20 08/03/20 08/03/20 22:59 06:59 14:59 Intake Total 600 Balance 600 Intake: IV 600 Sodium Chloride 0.9% 1, 600 000 ml @ 75 mls/hr IV . [id number] [facility] Rx#:[id number] Other: # Bowel Movements 2 Weight 72.575 kg GENERAL: The patient is alert and oriented x3, not in any acute distress. Well developed, well nourished. HEENT: Pupils are round and equally reacting to light. EOMI. No scleral icterus. No conjunctival pallor. Normocephalic, atraumatic. No pharyngeal erythema. No thyromegaly. CARDIOVASCULAR: S1 and S2 present. No murmurs, rubs, or gallops. PULMONARY: Diffuse bilateral crackles in the posterior lung blanca. No wheezing was appreciated. ABDOMEN: Soft, nontender, nondistended, normoactive bowel sounds. No palpable organomegaly. MUSCULOSKELETAL: No joint swelling or deformity. EXTREMITIES: No cyanosis, clubbing, or pedal edema. NEUROLOGICAL: Gross neurological examination did not reveal any focal deficits. SKIN: No rashes. Results - Laboratory Findings CBC and BMP: 08/02/20 14:00 08/03/20 06:21 PT/INR, D-dimer PT 10.2 sec (9.0-12.0) 08/02/20 14:00 INR 0.9 (<1.2) 08/02/20 14:00 D-Dimer 0.44 mg/L FEU (<0.60) 08/02/20 14:00 Abnormal lab findings: Abnormal Labs 08/02/20 08/02/20 08/02/20 14:00 14:00 14:00 Lymphocytes # 0.8 L Sodium 134 L Glucose 115 H Ferritin 1429.6 H AST 74 H ALT 76 H Lactate Dehydrogenase 1068 H C-Reactive Protein 84.7 H Total Protein Albumin Procalcitonin 0.12 H 08/03/20 06:21 Lymphocytes # Sodium Glucose 163 H Ferritin AST 49 H ALT 83 H Lactate Dehydrogenase C-Reactive Protein Total Protein 5.5 L Albumin 3.40 L Procalcitonin - Diagnostic Findings Chest x-ray: image reviewed Assessment and Plan Plan: 1 COVID 19 related pneumonia. The patient was diagnosed having COVID 19 infection on 07/22/2020 and the patient presented with worsening shortness of breath and mild component of pneumonia with mild hypoxemia. We are going to monitor the inflammatory markers. LDH was 1068 and CRP was 84 at time of admission. The patient had a pro calcitonin level of 0.12 and the patient had a d-dimer of 0.44. 2 shortness of breath secondary to above 3 hypoxemia and mild currently on room air oxygen with a pulse ox of 93% 4 mild transaminitis secondary to above 5 hyperlipidemia 6 acid reflux Plan Continue Decadron 6 mg IV every 24 hours, not candidate for Remdesivir Monitor oxygenation currently on room air oxygen with a pulse ox of 94% IV fluids Lovenox for DVT prophylaxis We'll continue to follow
[2020-08-03] MEDS: guaiFENesin-DM 600/30MG 1 EACH TAB.ER.12H PO PRN (12:10)
[2020-08-03] MEDS: SERTRALINE 25 MG TAB PO SCH (20:39)
[2020-08-03] MEDS: PANTOPRAZOLE 40 MG TABLET PO SCH (20:40)
--- NOTE | 2020-08-03 23:16 | P.PN ---
Subjective Progress Note Date: 08/03/20 Principal diagnosis: COVID Pneumonia Ms. Champagne is a 54-year-old female patient presented to the hospital because of worsening shortness of breath and cough. The patient was diagnosed having covid 19 infection on 07/22/2020. Apparently her symptoms was progressively getting worse and the patient ended up coming into the hospital for worsening shortness of breath. She has been having generalized body aches, fever, chills, worsening dyspnea and cough. Her cough got worse on the day of admission. No nausea. No vomiting. She was having some diarrhea earlier and she's been drinking plenty of fluids at home. No abdominal pain. No altered mentation. The patient had an initial blood work showing a white cell count of 7.1 with a hemoglobin of 12. Coagulation profile was within normal. D-dimer was 0.44. Electrolytes were all within normal limits. Renal function was normal. Lactic acid level was 1.5. The patient also had an LDH of 1068. CRP was 84. ProBNP level was 224. There is some mild transaminitis with AST of 74 and ALP of 76. The chest x-ray revealed some patchy bilateral peripheral infiltrates. The patient is currently on room air oxygen with a pulse ox of 94%. The patient is afebrile. Patient was started on Lovenox for DVT prophylaxis 40 mg subcu. Patient was started also on Decadron 6 many grams IV every 24 hours in addition to vitamin C, and zinc. On 08/03/2020 patient was seen and examined at bedside. She is comfortably sitting up in bed appears to be no acute distress. She complains of fatigue and generalized weakness. She denies having any fevers chills or rigors. She complains of mild difficulty in breathing. No cough or sputum production. She denies having any lower extremity swelling. No chest pain or palpitations. No abdominal pain nausea vomiting or diarrhea. No dysuria or hematuria. On reviewing the vitals patient's T-max 98.8, heart rate 75, respiratory 17, blood pressure 105/67 saturating at 95% on room air. On reviewing her labs sodium 138, potassium 3.8, chloride 106, bicarb 22, BUN 7, creatinine 0.7. Active Medications Acetaminophen (Acetaminophen Tab 325 Mg Tab) 650 mg PO Q6HR PRN PRN Reason: Mild Pain or Fever > 100.5 Albuterol Sulfate (Albuterol Hfa Inhaler) 2 puff INHALATION RT-QID [facility] Last Admin: 08/03/20 20:30 Dose: 2 puff Documented by: Ascorbic Acid (Ascorbic Acid 500 Mg Tab) 500 mg PO BID [facility] Last Admin: 08/03/20 20:40 Dose: 500 mg Documented by: Dexamethasone Sodium Phosphate (Dexamethasone Sod Phosphate 10 Mg/Ml 1 Ml Vial) 6 mg IV DAILY [facility] Last Admin: 08/03/20 08:06 Dose: 6 mg Documented by: Dicyclomine HCl (Dicyclomine 20 Mg Tab) 10 mg PO Q4H PRN PRN Reason: Diarrhea Last Admin: 08/03/20 20:42 Dose: 10 mg Documented by: Enoxaparin Sodium (Enoxaparin 40 Mg/0.4 Ml Syringe) 40 mg SQ DAILY [facility] Last Admin: 08/03/20 08:07 Dose: 40 mg Documented by: Guaifenesin/Dextromethorphan (Guaifenesin-Dm 600/30mg 1 Each Tab.Er.12h) 2 each PO Q12HR PRN PRN Reason: Cough Last Admin: 08/03/20 12:10 Dose: 2 each Documented by: Sodium Chloride (Saline 0.9%) 1,000 mls @ 75 mls/hr IV .[id number] [facility] Last Admin: 08/03/20 16:24 Dose: 75 mls/hr Documented by: Naloxone HCl (Naloxone 0.4 Mg/Ml 1 Ml Vial) 0.2 mg IV Q2M PRN PRN Reason: Opioid Reversal Pantoprazole Sodium (Pantoprazole 40 Mg Tablet) 40 mg PO [facility] Last Admin: 08/03/20 20:40 Dose: 40 mg Documented by: Sertraline HCl (Sertraline 25 Mg Tab) 25 mg PO [facility] Last Admin: 08/03/20 20:39 Dose: 25 mg Documented by: Zinc Sulfate (Zinc Sulfate 220 Mg Cap) 220 mg PO DAILY [facility] Last Admin: 08/03/20 08:07 Dose: 220 mg Documented by: Objective - Vital Signs Vital signs: Vital Signs Temp 98.0 F 08/03/20 09:40 Pulse 78 08/03/20 09:40 Resp 18 08/03/20 09:40 BP 114/65 08/03/20 09:40 Pulse Ox 94 L 08/03/20 09:40 Intake & Output 08/02/20 08/03/20 08/03/20 18:59 06:59 18:59 Intake Total 600 Balance 600 Weight 72.575 kg Intake: IV 600 Sodium Chloride 0.9% 1, 600 000 ml @ 75 mls/hr IV . [id number] [facility] Rx#:[id number] Other: # Bowel Movements 2 - Exam PHYSICAL EXAMINATION: GENERAL: The patient is alert and oriented x3, not in any acute distress. Well developed, well nourished. HEENT: Pupils are round and equally reacting to light. EOMI. No scleral icterus. No conjunctival pallor. Normocephalic, atraumatic. No pharyngeal erythema. No thyromegaly. CARDIOVASCULAR: S1 and S2 present. No murmurs, rubs, or gallops. PULMONARY: Diffuse bilateral crackles in the posterior lung blanca. No wheezing was appreciated. ABDOMEN: Soft, nontender, nondistended, normoactive bowel sounds. No palpable organomegaly. MUSCULOSKELETAL: No joint swelling or deformity. EXTREMITIES: No cyanosis, clubbing, or pedal edema. NEUROLOGICAL: Gross neurological examination did not reveal any focal deficits. SKIN: No rashes. - Labs CBC & Chem 7: 08/02/20 14:00 08/03/20 06:21 Labs: Abnormal Lab Results - Last 24 Hours (Table) 08/02/20 08/02/20 08/02/20 Range/Units 14:00 14:00 14:00 Lymphocytes # 0.8 L (1.0-4.8) k/uL Sodium 134 L (137-145) mmol/L Glucose 115 H (74-99) mg/dL Ferritin 1429.6 H (10.0-291.0) ng/mL AST 74 H (14-36) U/L ALT 76 H (4-34) U/L Lactate Dehydrogenase 1068 H (313-618) U/L C-Reactive Protein 84.7 H (<10.0) mg/L Total Protein (6.2-8.2) g/dL Albumin (3.80-4.90) g/dL Procalcitonin 0.12 H (0.02-0.09) ng/mL 08/03/20 Range/Units 06:21 Lymphocytes # (1.0-4.8) k/uL Sodium (137-145) mmol/L Glucose 163 H (74-99) mg/dL Ferritin (10.0-291.0) ng/mL AST 49 H (14-36) U/L ALT 83 H (4-34) U/L Lactate Dehydrogenase (313-618) U/L C-Reactive Protein (<10.0) mg/L Total Protein 5.5 L (6.2-8.2) g/dL Albumin 3.40 L (3.80-4.90) g/dL Procalcitonin (0.02-0.09) ng/mL Assessment and Plan Assessment: ASSESSMENT COVID-19 pneumonia Hypovolemic hyponatremia Elevated inflammatory markers GERD Hyperlipidemia PLAN: Patient is currently saturating at 95% on room air, her inflammatory markers have been high, she has been started on steroids, Lovenox, vitamin C and zinc supplements. Will monitor AM labs along with inflammatory markers. Continue with the current medication regimen further recommendations to follow depending on the progress of the patient.
[2020-08-04] MEDS: guaiFENesin-DM 600/30MG 1 EACH TAB.ER.12H PO PRN (00:50)
[2020-08-04] MEDS: DICYCLOMINE 20 MG TAB PO PRN ×2 (00:50→05:15)
[2020-08-04] MEDS: SODIUM CHLORIDE 0.9% 1,000 ML IV SCH (05:15)
[2020-08-04] MEDS: ZINC SULFATE 220 MG CAP PO SCH (07:21)
[2020-08-04] MEDS: DEXAMETHASONE SOD PHOSPHATE 10 MG/ML 1 ML VIAL IV SCH (07:21)
[2020-08-04] MEDS: ENOXAPARIN 40 MG/0.4 ML SYRINGE SQ SCH (07:21)
[2020-08-04] MEDS: ASCORBIC ACID 500 MG TAB PO SCH (07:21)
--- NOTE | 2020-08-04 08:16 | XR ---
EXAMINATION TYPE: XR chest 1V portable DATE OF EXAM: 08/04/2020 COMPARISON: 08/02/2020 HISTORY: Shortness of breath TECHNIQUE: Single frontal view of the chest is obtained. FINDINGS: Bilateral patchy areas of infiltrate greater within the periphery of the lung stable no si zable pneumothorax. Heart size normal. Hypertrophic and degenerative change of the spine. No sizable pleural effusion. IMPRESSION: Bilateral patchy multifocal infiltrates stable
[2020-08-04 08:35] LABS: HCT 32.3 % (37.2-46.3); HGB 10.5 g/dL (12.0-15.0); MCH 29.1 pg (27.0-32.0); MCHC 32.5 g/dL (32.0-37.0); MCV 89.5 fL (80.0-97.0); Mean Platelet Volume 10.6 fL (9.5-12.2); Platelet Count 316 X 10*3/uL (140-440); RBC 3.61 X 10*6/uL (4.10-5.20); RDW 13.2 % (11.5-14.5)
[2020-08-04] MEDS: ALBUTEROL HFA INHALER INHALATION SCH ×2 (08:54→12:46)
[2020-08-04 09:04] LABS: Basophils # (A) 0.02 X 10*3/uL (0.00-0.10); Basophils % (A) 0.2 %; Eosinophils # (A) 0 X 10*3/uL (0.04-0.35); Eosinophils % (A) 0 %; Lymphocytes # (A) 1.79 X 10*3/uL (0.90-5.00); Lymphocytes % (A) 20.3 %; Monocytes % (A) 4.5 %; Neutrophils # (A) 6.48 X 10*3/uL (1.80-7.70); Neutrophils % (A) 73.7 %
[2020-08-04 09:24] LABS: African American GFR (CKD) 112.3 (60.0-200.0); Anion Gap 7.6 mmol/L (4.00-12.00); BUN/Creat Ratio 22.86 Ratio (12.00-20.00); C Reactive Protein 3.3 mg/dL (0.0-0.8); Calcium 8.5 mg/dL (8.7-10.3); Carbon Dioxide 23.4 mmol/L (21.6-31.8); Non-African American GFR(CKD) 96.9 (60.0-200.0); Potassium 3.9 mmol/L (3.5-5.5)
--- NOTE | 2020-08-04 11:53 | P.PN ---
Subjective Progress Note Date: 08/04/20 54-year-old female patient presented to the hospital because of worsening shortness of breath and cough. The patient was diagnosed having covid 19 infection on 07/22/2020. Apparently her symptoms was progressively getting worse and the patient ended up coming into the hospital for worsening shortness of breath. She has been having generalized body aches, fever, chills, worsening dyspnea and cough. Her cough got worse on the day of admission. No nausea. No vomiting. She was having some diarrhea earlier and she's been drinking plenty of fluids at home. No abdominal pain. No altered mentation. The patient had an initial blood work showing a white cell count of 7.1 with a hemoglobin of 12. Coagulation profile was within normal. D-dimer was 0.44. Electrolytes were all within normal limits. Renal function was normal. Lactic acid level was 1.5. The patient also had an LDH of 1068. CRP was 84. ProBNP level was 224. There is some mild transaminitis with AST of 74 and ALP of 76. The chest x-ray revealed some patchy bilateral peripheral infiltrates. The patient is currently on room air oxygen with a pulse ox of 94%. The patient is afebrile. Patient was started on Lovenox for DVT prophylaxis 40 mg subcu. Patient was started also on Decadron 6 many grams IV every 24 hours in addition to vitamin C, and zinc. Cough is being suppressed with Mucinex D 01/04/2021 the patient is being seen for a follow-up. This morning, the patient is on room air oxygen with a pulse ox of 95%. The patient is still on Decadron ask milligrams on a daily basis and addition to vitamin C and vitamin D and zinc. She is also receiving Mucinex DM for cough. She was diagnosed having Covid 19 infection on 07/22/2020. The patient's chest x-ray also showed some patchy breath and pulmonary infiltrates. Nevertheless, she is doing well. Repeat chest x-ray was done today and the patient showed some possible improvement of the peripheral infiltrates on the right. Left side probably is essentially stable. Nevertheless, she is actually taking well on room air oxygen. The patient's inflammatory markers have been repeated today and the patient has an LDH level is down to 316 and a CRP level is down to 3.3. Her white cell count at 8.6 with a hemoglobin of 10.5. D-dimer is at 0.8. Objective - Vital Signs Vital signs: Vital Signs Temp 98.2 F 08/04/20 09:46 Pulse 57 L 08/04/20 09:46 Resp 18 08/04/20 09:46 BP 116/69 08/04/20 09:46 Pulse Ox 95 08/04/20 09:46 Intake & Output 08/03/20 08/04/20 08/04/20 18:59 06:59 18:59 Intake Total 600 600 Balance 600 600 Intake: IV 600 600 Sodium Chloride 0.9% 1, 600 600 000 ml @ 75 mls/hr IV . [id number] [facility] Rx#:[id number] Other: # Voids 2 - Exam GENERAL: The patient is alert and oriented x3, not in any acute distress. Well developed, well nourished. HEENT: Pupils are round and equally reacting to light. EOMI. No scleral icterus. No conjunctival pallor. Normocephalic, atraumatic. No pharyngeal erythema. No thyromegaly. CARDIOVASCULAR: S1 and S2 present. No murmurs, rubs, or gallops. PULMONARY: Diffuse bilateral crackles in the posterior lung blanca. No wheezing was appreciated. ABDOMEN: Soft, nontender, nondistended, normoactive bowel sounds. No palpable organomegaly. MUSCULOSKELETAL: No joint swelling or deformity. EXTREMITIES: No cyanosis, clubbing, or pedal edema. NEUROLOGICAL: Gross neurological examination did not reveal any focal deficits. SKIN: No rashes. - Labs CBC & Chem 7: 08/04/20 06:15 08/04/20 06:15 Labs: Abnormal Lab Results - Last 24 Hours (Table) 08/04/20 08/04/20 08/04/20 Range/Units 06:15 06:15 06:15 RBC 3.61 L (4.10-5.20) X 10*6/uL Hgb 10.5 L (12.0-15.0) g/dL Hct 32.3 L (37.2-46.3) % Absolute Nucleated RBC 0.02 H (0.00-0.00) X 10*3/uL Immature Gran # 0.11 H (0.00-0.04) X 10*3/uL Eosinophils # 0 L (0.04-0.35) X 10*3/uL NRBC/100 WBC Diff 0.2 H (0.0-0.0) /100 WBCS D-Dimer 0.80 H (<0.60) mg/L FEU BUN/Creatinine Ratio 22.86 H (12.00-20.00) Ratio Glucose 140 H (70-110) mg/dL Calcium 8.5 L (8.7-10.3) mg/dL Lactate Dehydrogenase 316 H (120-246) U/L C-Reactive Protein 3.3 H (0.0-0.8) mg/dL Microbiology - Last 24 Hours (Table) 08/02/20 15:00 Blood Culture - Preliminary Blood No Growth after 24 hours 08/02/20 14:45 Blood Culture - Preliminary Blood No Growth after 24 hours Assessment and Plan Plan: 1 COVID 19 related pneumonia. The patient was diagnosed having COVID 19 infection on 07/22/2020 and the patient presented with worsening shortness of breath and mild component of pneumonia with mild hypoxemia. We are going to monitor the inflammatory markers. LDH was 360 and CRP was 3.3 today and they are improving. The patient had a pro calcitonin level of 0.12 and the patient had a d-dimer of 0.8. 2 shortness of breath secondary to above, improved 3 hypoxemia and mild currently on room air oxygen with a pulse ox of 93% 4 mild transaminitis secondary to above 5 hyperlipidemia 6 acid reflux Plan Continue Decadron 6 mg IV every 24 hours and this can be switched to oral to complete a ten-day course, not candidate for Remdesivir Monitor oxygenation currently on room air oxygen with a pulse ox of 94% IV fluids to KVO Lovenox for DVT prophylaxis We'll continue to follow, consider discharging this patient home today.
[2020-08-04 13:50] VITALS: BP 131/71; PULSE 72; RESP 16; TEMP 98.3
--- NOTE | 2020-08-05 00:05 | P.DS ---
Providers Date of admission: 08/02/20 15:09 Expected date of discharge: 08/04/20 Attending physician: Agnieszka Pacheco MD Consults: 08/02/20 16:22 Consult Physician Routine Consulting Provider: Jackie Welch Consult Reason/Comments: covid pneumonia Do you want consulting provider notified?: Yes Primary care physician: [facility] Course: Ms. Champagne is a 54-year-old female patient presented to the hospital because of worsening shortness of breath and cough. The patient was diagnosed having covid 19 infection on 07/22/2020. Apparently her symptoms was progressively getting worse and the patient ended up coming into the hospital for worsening shortness of breath. She has been having generalized body aches, fever, chills, worsening dyspnea and cough. Her cough got worse on the day of admission. No nausea. No vomiting. She was having some diarrhea earlier and she's been drinking plenty of fluids at home. No abdominal pain. No altered mentation. The patient had an initial blood work showing a white cell count of 7.1 with a hemoglobin of 12. Coagulation profile was within normal. D-dimer was 0.44. Electrolytes were all within normal limits. Renal function was normal. Lactic acid level was 1.5. The patient also had an LDH of 1068. CRP was 84. ProBNP level was 224. There is some mild transaminitis with AST of 74 and ALP of 76. The chest x-ray revealed some patchy bilateral peripheral infiltrates. The patient is currently on room air oxygen with a pulse ox of 94%. The patient is afebrile. Patient was started on Lovenox for DVT prophylaxis 40 mg subcu. Patient was started also on Decadron 6 many grams IV every 24 hours in addition to vitamin C, and zinc. Hospital course-patient showed significant improvement on Decadron and chest x- ray done today showed improvement of the peripheral infiltrates. Overall the patient has been saturating in 90s to 95 on room air. Inflammatory markers trending down. Patient is cleared by pulmonary Dr. Bright to be discharged home today. The patient states that she is ready to go home and so being discharged home to have a follow-up with her primary care physician in 2 to 3 days. PHYSICAL EXAMINATION: Vital Signs Last 24 Hours 08/04/20 08/04/20 08/04/20 00:48 04:19 05:47 Temperature 98.3 F 98.3 F 98.4 F Pulse Rate [ 59 L 52 L 54 L Pulse Oximetery ] Respiratory 18 14 Rate Blood Pressure 122/68 131/84 120/55 [Right Arm] O2 Sat by Pulse 95 95 97 Oximetry 08/04/20 08/04/20 09:46 13:49 Temperature 98.2 F 98.3 F Pulse Rate [ 57 L 72 Pulse Oximetery ] Respiratory 18 16 Rate Blood Pressure 116/69 131/71 [Right Arm] O2 Sat by Pulse 95 96 Oximetry GENERAL: The patient is alert and oriented x3, not in any acute distress. Well developed, well nourished. HEENT: Pupils are round and equally reacting to light. EOMI. No scleral icterus. No conjunctival pallor. Normocephalic, atraumatic. No pharyngeal erythema. No thyromegaly. CARDIOVASCULAR: S1 and S2 present. No murmurs, rubs, or gallops. PULMONARY: Clear breath sounds bilaterally No wheezing was appreciated. ABDOMEN: Soft, nontender, nondistended, normoactive bowel sounds. No palpable organomegaly. MUSCULOSKELETAL: No joint swelling or deformity. EXTREMITIES: No cyanosis, clubbing, or pedal edema. NEUROLOGICAL: Gross neurological examination did not reveal any focal deficits. SKIN: No rashes. DISCHARGE DIAGNOSIS COVID-19 pneumonia Hypovolemic hyponatremia Elevated inflammatory markers GERD Hyperlipidemia Follow-up: Patient is advised to complete her steroid course. Advised to follow-up with her primary care physician in 2 to 3 days. More than 33 minutes spent with the discharge of the patient. Patient Condition at Discharge: Stable Plan - Discharge Summary Discharge Rx Participant: Yes New Discharge Prescriptions: New Dexamethasone [Decadron] 6 mg PO DAILY 8 Days #8 tablet Continue Esomeprazole Magnesium [NexIUM] 40 mg PO HS Sertraline [Zoloft] 25 mg PO HS Acetaminophen Tab [Tylenol] 500 mg PO Q6H PRN PRN Reason: Fever Dicyclomine [Bentyl] 10 mg PO Q4H Discharge Medication List Esomeprazole Magnesium [NexIUM] 40 mg PO HS 05/03/18 [History] Sertraline [Zoloft] 25 mg PO HS 07/15/20 [History] Acetaminophen Tab [Tylenol] 500 mg PO Q6H PRN 08/02/20 [History] Dicyclomine [Bentyl] 10 mg PO Q4H 08/02/20 [History] Dexamethasone [Decadron] 6 mg PO DAILY 8 Days #8 tablet 08/04/20 [Rx] Follow up Appointment(s)/Referral(s): Servando Hayes DO [Primary Care Provider] - 1-2 days (Please call office to make appointment) Jackie Welch MD [STAFF PHYSICIAN] - 08/26/20 3:15 pm (Appointment with Karen Stafford NP) Patient Instructions/Handouts: Coronavirus Disease 2019 (COVID-19) Discharge Disposition: HOME SELF-CARE
== END 2020-08-04 16:18 | disposition home or self-care (01) | DRG 177 ==
LOC: EC 12:52 → 4SSUR 15:09
PROVIDERS: ADMIT Internal Medicine; ATTEND Internal Medicine
DX: U07.1 COVID-19 (principal); J12.82 Pneumonia due to coronavirus disease 2019; E87.1 Hypo-osmolality and hyponatremia; E86.1 Hypovolemia; E78.5 Hyperlipidemia, unspecified; K21.9 Gastro-esophageal reflux disease without esophagitis; K58.0 Irritable bowel syndrome with diarrhea; Z79.899 Other long term (current) drug therapy; Z87.891 Personal history of nicotine dependence; Z90.710 Acquired absence of both cervix and uterus; I83.90 Asymptomatic varicose veins of unspecified lower extremity; R09.02 Hypoxemia; R00.0 Tachycardia, unspecified; R74.01 Elevation of levels of liver transaminase levels; Z90.89 Acquired absence of other organs; Z80.3 Family history of malignant neoplasm of breast; Z83.2 Family history of diseases of the blood and blood-forming organs and certain disorders involving the immune mechanism
CPT/HCPCS: 36415; 71045; 80048; 80053; 82728; 83605; 83615; 83735; 83880; 84145; 85025; 85379; 85610; 85730; 86140; 87040; 93005; 94640; 96374; 99285

== ENCOUNTER → 2020-09-29 | Outpatient (CLI) | payer BC ==
--- NOTE | 2020-09-29 12:27 | MM ---
Reason for exam: screening (asymptomatic). Last mammogram was performed 2 years and 7 months ago. History: Patient is postmenopausal. Family history of breast cancer in mother at age 60. Benign left mammotome panel of the left breast, September 19, 2008. Physical Findings: A clinical breast exam by your physician is recommended on an annual basis and results should be correlated with mammographic findings. MG Screening Mammo w CAD Bilateral CC and MLO view(s) were taken. Prior study comparison: March 16, 2018, bilateral MG screening mammo w CAD. February 22, 2016, bilateral MG screening mammo w CAD. There are scattered fibroglandular densities. Previous mammotome biopsy in the left breast. Asymmetric breast tissue right subareolar, stable. There is no discrete abnormality. ASSESSMENT: Benign, BI-RAD 2 RECOMMENDATION: Routine screening mammogram of both breasts in 1 year.
== END | disposition home or self-care (01) ==
LOC: RADMAMWWP 08:40
PROVIDERS: ATTEND Obstetrics & Gynecology Obstetrics
DX: Z12.31 Encounter for screening mammogram for malignant neoplasm of breast (principal); Z78.0 Asymptomatic menopausal state; Z80.3 Family history of malignant neoplasm of breast
CPT/HCPCS: 77067

== ENCOUNTER 2021-05-14 00:48 | Emergency (ER) | payer BC ==
--- NOTE | 2021-05-14 01:27 | XR ---
EXAMINATION TYPE: XR chest 2V DATE OF EXAM: 05/14/2021 COMPARISON: 09/09/2020 HISTORY: Cough TECHNIQUE: 2 views FINDINGS: Heart and mediastinum are normal. Lungs are clear. Diaphragm is normal. Bony thorax appears normal. IMPRESSION: Normal chest. No change.
[2021-05-14] MEDS ORDERED: guaiFENesin-DM 600/30MG 1 EACH TAB.ER.12H PO STA (02:58)
[2021-05-14] MEDS ORDERED: dexAMETHasone 2 MG TAB PO STA (02:58)
--- NOTE | 2021-05-14 03:00 | ED ---
General Adult HPI - General Chief complaint: Upper Respiratory Infection Stated complaint: Chest congestion Time Seen by Provider: 05/14/21 02:51 Source: patient Mode of arrival: ambulatory Limitations: no limitations - History of Present Illness Initial comments: 55 year-old female patient presents for cough. States when she coughs her chest hurts. Reports intermittent fever and body aches. She does have nasal congestion with this. She denies any shortness of breath. Denies nausea or vomiting. States she did have COVID-19 that required hospitalization in September. She has not received any vaccines. She has been taking [id number] Aleve and Tylenol for fevers. Denies use of other medications. - Related Data Home Medications Medication Instructions Recorded Confirmed Esomeprazole Magnesium [NexIUM] 40 mg PO HS 05/03/18 08/02/20 Sertraline [Zoloft] 25 mg PO HS 07/15/20 08/02/20 Acetaminophen Tab [Tylenol] 500 mg PO Q6H PRN 08/02/20 08/02/20 Dicyclomine [Bentyl] 10 mg PO Q4H 08/02/20 08/02/20 Previous Rx's Medication Instructions Recorded Dexamethasone [Decadron] 6 mg PO DAILY 8 Days #8 tablet 08/04/20 Budesonide [Pulmicort Flexhaler] 2 puff INHALATION BID #1 each 05/14/21 Dexamethasone 6 mg PO DAILY #9 tablet 05/14/21 guaiFENesin-DM 600/30MG [Mucinex 2 each PO Q12HR PRN #20 tab 05/14/21 Dm] Allergies Allergy/AdvReac Type Severity Reaction Status Date / Time No Known Allergies Allergy Verified 05/14/21 01:02 Review of Systems ROS Statement: Those systems with pertinent positive or pertinent negative responses have been documented in the HPI. ROS Other: All systems not noted in ROS Statement are negative. Past Medical History Past Medical History: GERD/Reflux, Hyperlipidemia, Osteoarthritis (OA) Additional Past Medical History / Comment(s): varicose veins, IBS, hypoglycemia, nauseated after eating, abd. pain History of Any Multi-Drug Resistant Organisms: None Reported Past Surgical History: Hysterectomy, Orthopedic Surgery, Tonsillectomy Additional Past Surgical History / Comment(s): deviated septum, shyla bunionectomy,shyla carpal tunnel, bilateral foot surgery, left rotator cuff repair Past Anesthesia/Blood Transfusion Reactions: No Reported Reaction Past Psychological History: No Psychological Hx Reported Smoking Status: Former smoker Past Alcohol Use History: None Reported Past Drug Use History: None Reported - Past Family History Mother Family Medical History: Cancer Additional Family Medical History / Comment(s): breast Father Family Medical History: Deep Vein Thrombosis (DVT) General Exam Limitations: no limitations General appearance: alert, in no apparent distress, other (This is a well- developed, well-nourished adult female in no acute distress.) ENT exam: Present: normal exam, normal oropharynx, mucous membranes moist Respiratory exam: Present: normal lung sounds bilaterally. Absent: respiratory distress, wheezes, rales, rhonchi, stridor Cardiovascular Exam: Present: normal rhythm, tachycardia, normal heart sounds. Absent: systolic murmur, diastolic murmur, rubs, gallop, clicks GI/Abdominal exam: Present: soft, normal bowel sounds. Absent: distended, tenderness, guarding, rebound, rigid Neurological exam: Present: alert, oriented X3, CN II-XII intact Psychiatric exam: Present: normal affect, normal mood Skin exam: Present: warm, dry, intact, normal color. Absent: rash Course Vital Signs 05/14/21 05/14/21 05/14/21 01:02 02:51 03:12 Temperature 100.1 F H 98.7 F 98.8 F Pulse Rate 103 H 99 85 Respiratory 18 18 24 Rate Blood Pressure 146/74 137/72 133/83 O2 Sat by Pulse 96 96 97 Oximetry Medical Decision Making - Medical Decision Making 55-year-old female patient presented for evaluation of painful cough and nasal congestion, fever. Physical examination is unremarkable. Lungs are clear to auscultation with good air movement. Chest x-ray is negative. She did test positive for COVID-19. She does not meet criteria to receive monoclonal antibodies. We'll treat with steroid, Pulmicort inhaler, Mucinex DM. She is given instructions for supportive care and symptomatic management at home. She is instructed to follow-up with her primary care physician for recheck in 1-2 days. Return parameters were discussed in detail. She verbalizes understanding and is discharged in stable condition. My attending is Dr. Harden. - Lab Data Lab Results 05/14/21 Range/Units 01:07 Coronavirus (PCR) Detected A (Not Detectd) - Radiology Data Radiology results: report reviewed, image reviewed Two-view x-ray of the chest is obtained. Report was reviewed in its entirety. Impression by Dr. Masterson shows normal chest. No change. Disposition Clinical Impression: COVID-19 Disposition: HOME SELF-CARE Condition: Good Instructions (If sedation given, give patient instructions): Coronavirus Disease 2019 (COVID-19) Additional Instructions: Tips to help you feel better: -Maintain adequate fluid intake - especially water. -Rest, you are healing your body will require extra sleep. -Eat even if you do not feel like it - broth, jello, toast are fine if you cannot eat full meals. -Take tylenol and motrin alternating (if you have no allergies or have not been instructed to avoid these medications) to help with body aches and fevers. -Obtain over the counter vitamin C, zinc, and vitamin D3. -Take medications as prescribed. Follow-up with your primary care physician for recheck in 1-2 days. Return for any new, worsening, or concerning symptoms. Prescriptions: Dexamethasone 6 mg PO DAILY #9 tablet guaiFENesin-DM 600/30MG [Mucinex Dm] 2 each PO Q12HR PRN #20 tab PRN Reason: Cough Budesonide [Pulmicort Flexhaler] 2 puff INHALATION BID #1 each Is patient prescribed a controlled substance at d/c from ED?: No Referrals: Servando Hayes DO [Primary Care Provider] - 1-2 days Time of Disposition: 03:00
[2021-05-14 03:13] VITALS: BP 133/83; PULSE 85; RESP 24; TEMP 98.8
== END 2021-05-14 03:13 | disposition home or self-care (01) ==
LOC: EC 00:48
DX: U07.1 COVID-19 (principal); E78.5 Hyperlipidemia, unspecified; M19.90 Unspecified osteoarthritis, unspecified site; K21.9 Gastro-esophageal reflux disease without esophagitis; Z79.899 Other long term (current) drug therapy; Z87.891 Personal history of nicotine dependence
CPT/HCPCS: 87635; 71046; 99283; J8540

== ENCOUNTER → 2021-11-08 | Outpatient (CLI) | payer BC ==
--- NOTE | 2021-11-08 09:16 | US ---
EXAMINATION TYPE: US abdomen complete DATE OF EXAM: 11/08/2021 COMPARISON: NONE CLINICAL HISTORY: R10.30 LOWER ABDOMINAL PAIN, UNSPECIFIED. RLQ pain for 2 months, worse when sneezin g EXAM MEASUREMENTS: Liver Length: 15.2 cm Gallbladder Wall: 0.2 cm CBD: 0.6 cm Spleen: 10.7 cm Right Kidney: 9.2 x 3.9 x 4.2 cm Left Kidney: 10.6 x 5.1 x 4.1 cm *technical limitations due to large amount of overlying bowel content Pancreas: Obscured by bowel gas Liver: appears wnl Gallbladder: no evidence of stones Evidence for sonographic Lundberg's sign: no CBD: upper limits of normal Spleen: wnl Right Kidney: no evidence of hydronephrosis Left Kidney: no evidence of hydronephrosis Upper IVC: wnl Abd Aorta: visualized portions appear wnl scanned within area of patient's concern, RLQ, unable to identify any abnormality by ultrasound at this time IMPRESSION: 1. No suspicious abnormality abdomen ultrasound including the area of concern in the right lower quad rant.
== END | disposition home or self-care (01) ==
LOC: RADUSWWP 06:55
PROVIDERS: ATTEND Family Medicine
DX: R10.30 Lower abdominal pain, unspecified (principal)
CPT/HCPCS: 76700

== ENCOUNTER → 2021-11-18 | Outpatient (CLI) | payer BC ==
--- NOTE | 2021-11-18 16:45 | CT ---
EXAMINATION TYPE: CT abdomen pelvis w con DATE OF EXAM: 11/18/2021 COMPARISON: 07/26/2016 INDICATION: lower abdominal pain DLP: 1114.5 mGycm, Automated exposure control for dose reduction was used. CONTRAST: 70ml mL of Isovue 300. Study performed with Oral Contrast TECHNIQUE: Axial images were obtained from above the diaphragm to the pubic rami in the axial plane a t 5 mm thick sections. Reconstructed images are reviewed on the computer in the coronal plane. FINDINGS: Limited CT sections are obtained the lung bases. The lung bases are clear. CT ABDOMEN: Liver: Normal Spleen: Normal Pancreas: Normal Adrenal glands: The adrenal glands are normal. Gallbladder: Normal Kidneys: No masses are evident. No hydronephrosis is present. No cysts are present. Delayed images were obtained through the kidneys. A superior anterior left renal cyst is evident measuring 1.3 cm. Aorta: Normal Inferior vena cava: Normal. CT PELVIS: Loops of bowel within the abdomen and pelvis are normal. There are loops of bowel which are incom pletely distended or lack oral contrast limiting their evaluation. Appendix: Not well visualized. Small portion which may be appendix appears normal. Suspicious dilated tubular structure or inflammatory change is not evident. Correlate with the patient's surgical histo ry. There are a couple of lymph nodes in the right lower quadrant which are nonspecific. Correlate fo r mesenteric adenitis. Urinary bladder: Normal. Genitourinary structures: Uterus not identified. Adnexa appear normal. Osseous structures: No suspicious lytic or sclerotic lesions. IMPRESSIONS: 1. Poor visualization of the appendix. Early with the surgical history. Clinical management of any s uspected appendicitis will be required. Consider mesenteric adenitis within the differential. #2 left renal cyst
== END | disposition home or self-care (01) ==
LOC: RADCTMAIN 13:20
PROVIDERS: ATTEND Family Medicine
DX: N28.1 Cyst of kidney, acquired (principal)
CPT/HCPCS: 74177; 36415; Q9967

== ENCOUNTER → 2023-03-28 | Outpatient (CLI) | payer MEDICAID ==
--- NOTE | 2023-03-30 07:47 | MM ---
Reason for Exam: Screening (asymptomatic). Last mammogram was performed 2 year(s) and 6 month(s) ago. Patient History: Menarche at age 11. First Full-Term at age 17. Right ovary removed at age 27. Hysterectomy at age 26. Postmenopausal. 09/19/2008, Benign Core Biopsy on the left side. Mother had breast cancer, age 60. Risk Values: Ruby 5 year model risk: 3.0%. NCI Lifetime model risk: 15.8%. Prior Study Comparison: 02/22/2016 Bilateral Screening Mammogram, [facility]. 03/16/2018 Bilateral Screening Mammogram, [facility]. 09/29/2020 Bilateral Screening Mammogram, [facility]. Tissue Density: There are scattered fibroglandular densities. Findings: Analyzed By CAD. Pattern appears stable. Core marker is within the left breast. Benign-appearing calcifications are within the anterior left breast. No significant interval changes are evident. No suspicious groups of microcalcifications, spiculated or lobular masses, architectural distortion or other secondary signs of malignancy are mammographically apparent. Overall Assessment: Benign, BI-RAD 2 Management: Screening Mammogram of both breasts in 1 year. A negative mammogram report should not preclude additional follow up of suspicious palpable abnormalities. Patient should continue monthly self breast exam. A clinical breast exam by your physician is recommended on an annual basis and results should be correlated with mammographic findings. Electronically signed and approved by: Vimal White D.O. Radiologis
== END | disposition home or self-care (01) ==
LOC: RADMAMWWP 07:37
PROVIDERS: ATTEND Obstetrics & Gynecology Obstetrics
DX: Z12.31 Encounter for screening mammogram for malignant neoplasm of breast (principal); Z78.0 Asymptomatic menopausal state; Z80.3 Family history of malignant neoplasm of breast
CPT/HCPCS: 77067

== ENCOUNTER → 2023-06-26 | Outpatient (CLI) | payer MEDICAID ==
--- NOTE | 2023-06-26 17:21 | US ---
EXAMINATION TYPE: US abdomen limited DATE OF EXAM: 06/26/2023 COMPARISON: NONE CLINICAL INDICATION: Female, 57 years old with history of R10.11 RIGHT UPPER QUADRANT PAIN; RUQ pain TECHNIQUE: Multiple sonographic images of the right upper quadrant are obtained. FINDINGS: EXAM MEASUREMENTS: Liver Length: 14.5 cm Gallbladder Wall: .3 cm CBD: .5 cm Right Kidney: 9.3 x 4.2 x 3.8 cm Pancreas: Tail obscured by overlying bowel gas Liver: Increased attenuation Gallbladder: No stones seen Evidence for sonographic Lundberg's sign: No CBD: wnl Right Kidney: Cortical thinning . No hydronephrosis. IMPRESSION: 1. Moderate hepatic steatosis. 2. No gallstones or biliary ductal dilatation.
== END | disposition home or self-care (01) ==
LOC: RADUSWWP 06:48
PROVIDERS: ATTEND Family Medicine
DX: K76.0 Fatty (change of) liver, not elsewhere classified (principal); R10.11 Right upper quadrant pain
CPT/HCPCS: 76705